=== PATIENT | female | born 1985 | race Caucasian/White ===

== ENCOUNTER 2016-12-31 14:53 | Emergency (ER) | payer OTHER ==
[~2016-12-31] VITALS: Ht 167.6 cm; Wt 136.1 kg
[~2016-12-31 14:53] MED LIST: AMOXICILLIN 50500 M1 PO; APAP W/CODEINE1 TA2 PO; ATIVAN0.5 MG PO; BACTRIM DS TAB1 EACH PO; CIPRO500 MG PO; CLEOCIN HCL150 MG PO; CLEOCIN HCL300 MG PO; COLACE100 MG; CORTISPORIN OTI10 M2 OT; DERMOPLAST SPRA56 ML TOP; DIFLUCAN150 MG PO; DIFLUCAN200 MG PO; FLAGYL500 MG PO; FOLIC ACID1 MG; IBUPROFEN 600600 M1 PO; IBUPROFEN 800800 M1 PO; KEFLEX500 MG PO; KEPPRA1000 MG; LAMICTAL XR200 MG PO; MACROBID 100 M100 M1 PO; NEURONTIN 300300 M1 PO; NORCO 5-325 TA1 EACH PO; ONDANSETRON HCL4 M2 PO; ONFI10 MG PO; PENICILLIN V P500 MG PO; PROZAC20 MG PO; TRAMADOL 50 MG50 MG PO; ULTRAM 50MG TAB50 MG PO; VIMPAT200 MG PO; ZONISAMIDE 100100 M1 PO
[2016-12-31 15:56] LABS: URINE BILIRUBIN NEGATIVE (Negative); URINE BLOOD 2+ (Negative); URINE COLOR YELLOW; URINE GLUCOSE-RANDOM* NEGATIVE (Negative); URINE KETONES NEGATIVE (Negative); URINE NITRITE NEGATIVE (Negative); URINE PROTEIN (DIPSTICK) 2+ (Negative); URINE SPECIFIC GRAVITY >= 1.030 (1.003-1.035); URINE UROBILINOGEN 0.2 E.U./dl (0.2-1.0)
[2016-12-31 16:03] LABS: CASTS None Seen /LPF (None Seen); SQUAMOUS >10 Many /LPF (0-3)
[2016-12-31 16:04] LABS: URINE RBC 3-10 Few /HPF (0-2); URINE WBC >25 Many /HPF (0-5)
[2016-12-31 16:05] LABS: CRYSTALS None Seen /LPF (None Seen)
[2016-12-31] MEDS ORDERED: DIFLUCAN200 MG PO (16:05)
[2016-12-31] MEDS ORDERED: MACROBID 100 M100 M1 PO (16:05)
[2016-12-31] MEDS ORDERED: ONFI20 MG PO (16:26)
[2016-12-31] MEDS ORDERED: ZONISAMIDE 100100 M1 PO (16:27)
[2016-12-31 16:28] VITALS: BP 134/97
[2016-12-31] MEDS ORDERED: LEVETIRACETAM250 MG PO (16:28)
[2016-12-31] MEDS ORDERED: PROZAC10 M1 PO (16:28)
[2017-01-01] MEDS ORDERED: BACTRIM DS TAB1 EACH PO (19:01)
== END 2016-12-31 16:30 | disposition home or self-care (01) ==
LOC: ER 14:53
PROVIDERS: Nurse Practitioner
DX: N39.0 Urinary tract infection, site not specified (principal); F41.9 Anxiety disorder, unspecified; F31.9 Bipolar disorder, unspecified; G40.909 Epilepsy, unspecified, not intractable, without status epilepticus; F17.210 Nicotine dependence, cigarettes, uncomplicated

== ENCOUNTER 2017-01-01 18:41 | Emergency (ER) | payer OTHER ==
[~2017-01-01] VITALS: Ht 167.6 cm; Wt 135.2 kg
[~2017-01-01 18:41] MED LIST changes: +LEVETIRACETAM250 MG PO; +ONFI20 MG PO; +PROZAC10 M1 PO
[2017-01-01] MEDS ORDERED: BACTRIM DS TAB1 EACH PO (19:01)
[2017-01-01 19:41] VITALS: BP 141/78
== END 2017-01-01 19:42 | disposition home or self-care (01) ==
LOC: ER 18:41
DX: L02.416 Cutaneous abscess of left lower limb (principal); F41.9 Anxiety disorder, unspecified; F31.9 Bipolar disorder, unspecified; F17.210 Nicotine dependence, cigarettes, uncomplicated

== ENCOUNTER 2017-06-07 21:09 | Emergency (ER) | payer OTHER ==
[~2017-06-07] VITALS: Ht 165.1 cm; Wt 124.7 kg
[~2017-06-07 21:09] MED LIST changes: +KEFLEX500 M1 PO
[2017-06-07 21:43] LABS: URINE BILIRUBIN NEGATIVE (Negative); URINE BLOOD TRACE (Negative); URINE CLARITY CLEAR; URINE COLOR YELLOW; URINE GLUCOSE-RANDOM* NEGATIVE (Negative); URINE KETONES TRACE (Negative); URINE NITRITE-REFLEX NEGATIVE (Negative); URINE PROTEIN (DIPSTICK) NEGATIVE (Negative); URINE SPECIFIC GRAVITY 1.025 (1.005-1.035); URINE UROBILINOGEN 0.2 E.U./dl (0.2-1.0)
[2017-06-07 21:44] LABS: URINE LEUKOCYTES-REFLEX 1+ (Negative)
[2017-06-07 21:59] LABS: SQUAMOUS >10 Many /LPF (0-3); URINE RBC 3-10 Few /HPF (0-2)
[2017-06-07 22:00] LABS: CASTS None Seen /LPF (None Seen); CRYSTALS None Seen /LPF (None Seen); TRANSITIONAL EPITHEL CELL 0-3 Few /LPF (None Seen)
[2017-06-07] MEDS ORDERED: FLAGYL500 MG PO (22:02)
== END 2017-06-07 23:16 | disposition home or self-care (01) ==
LOC: ER 21:09
PROVIDERS: Physician Assistant
DX: A59.9 Trichomoniasis, unspecified (principal); G40.909 Epilepsy, unspecified, not intractable, without status epilepticus; N89.8 Other specified noninflammatory disorders of vagina; F31.9 Bipolar disorder, unspecified; F17.210 Nicotine dependence, cigarettes, uncomplicated